=== PATIENT | female | born 1975 | race African-American/Black ===

== ENCOUNTER 2020-01-10 20:44 | Emergency (ER) | payer MEDICAID ==
[~2020-01-10] VITALS: Ht 177.8 cm; Wt 68.0 kg
[2020-01-10 21:09] VITALS: BP 123/82
[2020-01-10] MEDS ORDERED: PREDNISONE20 MG ORAL (21:34)
[2020-01-10] MEDS ORDERED: DIPHENHYDRAMINE25 M1 ORAL (21:34)
[2020-01-10 21:38] VITALS: BP 123/82
--- NOTE | 2020-01-11 16:16 | Emergency Room Report ---
History of Present Illness General Chief Complaint: Skin Rash/Abscess Source: Patient Present Illness HPI 44-year-old female presents ED with a rash. Started 2 days ago. All over body. Very itchy. Denies pain. Denies any known food or drug allergies. Denies sick contacts or recent travel. States she lives with her family and kids. Denies tongue swelling or throat swelling. Denies shortness of breath. No other aggravating relieving factors. Denies any other associated symptoms Allergies: Coded Allergies: No Known Allergies (Unverified , 01/10/20) COVID-19 Screening Contact w/high risk pt: No Recent Travel to affected area: No Experienced COVID-19 symptoms?: No COVID-19 Testing performed SUPERVISOR CLAIMS: No Patient History Past Medical History: none Past Surgical History: none Pertinent Family History: none Social History: Denies: smoking, alcohol use, drug use Last Menstrual Period: current Now: No Immunizations: UTD Reviewed Nursing Documentation: PMH: Agreed; PSxH: Agreed Nursing Documentation-PMH Past Medical History: No Stated History Review of Systems All Other Systems: negative except mentioned in HPI Physical Exam Vital Signs Date Time Temp Pulse Resp B/P (MAP) Pulse Ox O2 Delivery O2 Flow Rate FiO2 01/10/20 20:56 98.2 87 16 123/82 (96) 98 Room Air Sp02 EP Interpretation: reviewed, normal General Appearance: no apparent distress, alert, GCS 15, non-toxic Head: normocephalic, atraumatic Eyes: bilateral eye normal inspection, bilateral eye PERRL ENT: hearing grossly normal, normal pharynx, no angioedema, normal voice Neck: full range of motion, supple/symm/no masses Respiratory: chest non-tender, lungs clear, normal breath sounds, speaking full sentences Cardiovascular #1: regular rate, rhythm, no edema Cardiovascular #2: 2+ carotid (R), 2+ carotid (L), 2+ radial (R), 2+ radial (L) , 2+ dorsalis pedis (R), 2+ dorsalis pedis (L) Gastrointestinal: normal bowel sounds, non tender, soft, non-distended, no guarding, no rebound Rectal: deferred Genitourinary: normal inspection, no CVA tenderness Musculoskeletal: back normal, normal range of motion, gait/station normal, non- tender Neurologic: alert, motor strength/tone normal, oriented x3, sensory intact, responsive, speech normal Psychiatric: judgement/insight normal, memory normal, mood/affect normal, no suicidal/homicidal ideation Reflexes: 3+ bicep (R), 3+ bicep (L), 3+ tricep (R), 3+ tricep (L), 3+ knee (R) , 3+ knee (L) Skin: other - Urticarial rash diffuse Lymphatic: no adenopathy Medical Decision Making Diagnostic Impression: Primary Impression: Mother currently breast-feeding Additional Impression: Urticaria ER Course Hospital Course 44-year-old female presents to ED with rash to body Differential diagnoses include: Cellulitis, dermatitis, insect bite, abscess Clinical course Patient placed on stretcher. After initial history, physical exam reveals a young female in no acute distress. On exam there he is urticarial rash to the arms legs chest and face. Vital stable. Patient appears well, nontoxic. I discussed with patient. Appears like allergic reaction. Unclear what the patient is allergic to. No prior food or drug allergies. Patient is breast-feeding. discussed with HOME WEATHERIZING WORKER. Stated that Benadryl is safe in breast-feeding. However prednisone dosing needs to be lowered. I discussed this with the patient and she is comfortable with the medications. She is still recommended to follow-up with her retail administrative assistant to let them know that she is taking his medications. Safe for discharge with close outpatient follow-up Diagnosis -urticaria, mother currently breast-feeding stable and discharged to home with prescription for Benadryl, prednisone. Instructed to followup with PMD/retail administrative assistant. Instructed return to ED if symptoms recur or worsen Last Vital Signs Date Time Temp Pulse Resp B/P (MAP) Pulse Ox O2 Delivery O2 Flow Rate FiO2 01/10/20 21:38 98.2 88 16 123/82 98 Room Air Status: improved Disposition: HOME, SELF-CARE Condition: Stable Scripts Diphenhydramine Hcl* (DIPHENHYDRAMINE HCL*) 25 Mg Capsule 25 MG ORAL Q6H PRN for Itching for 5 Days, #30 CAP 0 Refills Prov: Tyson Ramirez MD 01/10/20 Prednisone* (PREDNISONE*) 20 Mg Tablet 20 MG ORAL DAILY for 5 Days, TAB Prov: Tyson Ramirez MD 01/10/20 Referrals: NOT CHOSEN [facility]/,REFERRING (PCP) Patient Instructions: April, [id number] Additional Instructions: followup with your retail administrative assistant regarding you taking prednisone and benedryl. Tyson Ramirez MD Jan 11, 2020 16:16
== END 2020-01-10 21:38 | disposition home or self-care (01) ==
LOC: EMR 21:24
DX: L50.9 Urticaria, unspecified (principal)
CPT/HCPCS: 99282

== ENCOUNTER 2020-01-11 23:40 | Emergency (ER) | payer MEDICAID ==
[~2020-01-11] VITALS: Ht 175.3 cm; Wt 56.7 kg
[~2020-01-11 23:40] MED LIST: DIPHENHYDRAMINE25 M1 ORAL; PREDNISONE20 MG ORAL
--- NOTE | 2020-01-12 00:11 | Emergency Room Report ---
History of Present Illness General Chief Complaint: Allergic Reaction Source: Patient, Medical Record Present Illness HPI This a 44-year-old female who is breast-feeding. She presents with chief complaint of allergic reaction. Onset for last couple days. She was seen here yesterday and was given prednisone and Benadryl. Is not helping. Unknown etiology. She said itching is worse. Worse with scratching. No nausea no vomiting. No fever chills. No respiratory issue. Denies any new medication or food. Allergies: Coded Allergies: No Known Allergies (Unverified , 01/10/20) COVID-19 Screening Contact w/high risk pt: No Recent Travel to affected area: No Experienced COVID-19 symptoms?: No COVID-19 Testing performed INTELLIGENCE CONSULTANT: No Patient History Past Medical History: see triage record, old chart reviewed Past Surgical History: none Pertinent Family History: none Social History: Denies: smoking Now: No Immunizations: other Reviewed Nursing Documentation: PMH: Agreed; PSxH: Agreed Nursing Documentation-PMH Past Medical History: No Stated History Review of Systems Eye: Denies: eye pain, blurred vision ENT: Denies: ear pain, nose congestion, throat swelling Respiratory: Denies: cough, shortness of breath Cardiovascular: Denies: chest pain, palpitations Gastrointestinal: Denies: abdominal pain, diarrhea, nausea, vomiting Musculoskeletal: Denies: back pain, joint pain Skin: Denies: rash Neurological: Denies: headache, numbness Endocrine: Denies: increased thirst, increased urine Hematologic/Lymphatic: Denies: easy bruising All Other Systems: negative except mentioned in HPI Physical Exam Vital Signs Date Time Temp Pulse Resp B/P (MAP) Pulse Ox O2 Delivery O2 Flow Rate FiO2 01/11/20 23:47 98.6 102 20 97 Room Air Vitals normal Sp02 EP Interpretation: reviewed, normal General Appearance: well appearing, no apparent distress, alert Head: normocephalic, atraumatic Eyes: bilateral eye PERRL, bilateral eye EOMI ENT: hearing grossly normal, normal pharynx Neck: full range of motion, supple, no meningismus Respiratory: chest non-tender, lungs clear, normal breath sounds Cardiovascular #1: regular rate, rhythm, no murmur Gastrointestinal: normal bowel sounds, non tender, no mass, no organomegaly, no bruit, non-distended Musculoskeletal: back normal, normal range of motion, gait/station normal Psychiatric: mood/affect normal Skin: rash - Scattered urticaria Medical Decision Making Diagnostic Impression: Primary Impression: Allergic reaction Qualified Codes: T78.40XA - Allergy, unspecified, initial encounter ER Course Patient with allergic reaction. The only thing that she noticed or did different was she went to the beach couple days ago. I suspect that there may be something in the sand and since she is sitting in the car may be in their seat that causes recurrent issue. There is no respiratory issue. No anaphylaxis. Better after Benadryl. Will increase her Benadryl dose and prednisone dosing. Last Vital Signs Date Time Temp Pulse Resp B/P (MAP) Pulse Ox O2 Delivery O2 Flow Rate FiO2 01/11/20 23:47 98.6 102 20 97 Room Air Status: improved Disposition: HOME, SELF-CARE Condition: Stable Scripts Prednisone* (PREDNISONE*) 20 Mg Tablet 20 MG ORAL DAILY, #3 TAB Prov: Mark Magallanes MD 01/12/20 [facility],REFERRING (PCP) Patient Instructions: Allergies Additional Instructions: Clean your car to see if this may be because of allergic reaction. Increase your Benadryl to 50 mg every 6 hours needed for itching. Increase prednisone to 40 mg a day for 3 days. Follow-up with your doctor in a week. You may need a referral to see an travel specialist for skin testing. Return if worse. Mark Magallanes MD Jan 12, 2020 00:11
[2020-01-12] MEDS ORDERED: DiphenhydrAMINE 50mg/ml Inj IVP ONE (00:15)
[2020-01-12 00:42] LABS: HEMATOCRIT 39.1 % (37.0-47.0); HEMOGLOBIN 12.6 G/DL (12.0-16.0); MEAN CORPUSCULAR VOLUME 88 FL (80-99); PLATELET COUNT 288 K/UL (150-450); RED BLOOD COUNT 4.47 M/UL (4.20-5.40); RED CELL DISTRIBUTION WIDTH 12.7 % (11.6-14.8); WHITE BLOOD COUNT 10.3 K/UL (4.8-10.8)
[2020-01-12 00:53] LABS: ANION GAP 9 mmol/L (5-15); BLOOD UREA NITROGEN 25 mg/dL (7-18); CALCIUM 8.9 MG/DL (8.5-10.1); CARBON DIOXIDE 27 MMOL/L (21-32); CHLORIDE 104 MMOL/L (98-107); CREATININE 1.2 MG/DL (0.55-1.30); SODIUM 140 MMOL/L (136-145)
[2020-01-12 01:00] LABS: ALANINE AMINOTRANSFERASE 18 U/L (12-78); ALBUMIN 3.9 G/DL (3.4-5.0); ALBUMIN/GLOBULIN RATIO 0.9 (1.0-2.7); ALKALINE PHOSPHATASE 69 U/L (46-116); ASPARTATE AMINO TRANSFERASE 20 U/L (15-37); BILIRUBIN,TOTAL 0.3 MG/DL (0.2-1.0)
[2020-01-12 01:14] LABS: APPEARANCE,URINE CLEAR; BILIRUBIN, URINE NEGATIVE (NEGATIVE); COLOR,URINE PALE YELLOW; GLUCOSE, URINE (UA) NEGATIVE (NEGATIVE); KETONES,URINE NEGATIVE (NEGATIVE); LEUKOCYTE ESTERASE ,URINE NEGATIVE (NEGATIVE); NITRITE,URINE NEGATIVE (NEGATIVE); PH,URINE 5 (4.5-8.0); PROTEIN,URINE 2+ (NEGATIVE); UROBILINOGEN,URINE NORMAL MG/DL (0.0-1.0)
[2020-01-12] MEDS ORDERED: PREDNISONE20 MG ORAL (01:29)
== END 2020-01-12 01:35 | disposition home or self-care (01) ==
LOC: EMR 01-12 00:04
DX: T78.40XA Allergy, unspecified, initial encounter (principal); X58.XXXA Exposure to other specified factors, initial encounter; Y92.9 Unspecified place or not applicable
CPT/HCPCS: 36415; 80053; 80307; 81001; 81025; 85025; 96374; 96375; J1100; J1200; S0028; Z7502; 99284